=== PATIENT | female | born 1960 | race Caucasian/White ===

== ENCOUNTER 2020-06-21 15:09 | Outpatient (REF) | payer SELFPAY ==
[2020-06-21 16:32] LABS: Cholesterol 240 mg/dL
== END 2020-06-21 15:10 | disposition home or self-care (01) ==
LOC: HO.LNC 15:09
PROVIDERS: Visit Provider Pathology Anatomic Pathology & Clinical Pathology
DX: Z76.89 Persons encountering health services in other specified circumstances (principal)
CPT/HCPCS: 82465

== ENCOUNTER 2020-07-27 14:56 | Outpatient (REF) | payer OTHER, SELFPAY | END 2020-07-27 14:57 | disposition home or self-care (01) | LOC: HO.HOSX 14:56 | PROVIDERS: Visit Provider Orthopaedic Surgery | DX: Z13.89 Encounter for screening for other disorder (principal) ==

== ENCOUNTER 2020-07-28 07:48 | Outpatient (REF) | payer OTHER, SELFPAY ==
--- NOTE | 2020-07-28 07:51 | XR_ITS ---
EXAMINATION: XR SHOULDER, LEFT CLINICAL INFORMATION: Pain COMPARISON: None TECHNIQUE: Three views of the left shoulder. FINDINGS: Alignment is normal at the acromioclavicular and glenohumeral joints. The acromioclavicular joint is normal. There are no large osteophytes projecting from the undersurface of the AC joint. No hook-shaped acromion or acromiohumeral distance narrowing. The glenohumeral joint space is preserved. No glenohumeral arthritic deformity, fracture or subluxation. There appears to be a small bone island of the greater tuberosity. No suspicious bone lesion. No calcium deposition within the rotator cuff tendons. The visualized portion of the left lung is clear. XR/XR shoulder LT min 2V IMPRESSION: Normal left shoulder. No specific source of pain is identified.
== END 2020-07-28 07:49 | disposition home or self-care (01) ==
LOC: HO.HOSX 07:48
PROVIDERS: PCP Internal Medicine; Visit Provider Orthopaedic Surgery
DX: M25.512 Pain in left shoulder (principal); M77.12 Lateral epicondylitis, left elbow
CPT/HCPCS: 73030

== ENCOUNTER 2020-08-16 15:26 | Outpatient (REF) | payer SELFPAY ==
[2020-08-16 16:31] LABS: Cholesterol 250 mg/dL
== END 2020-08-16 15:27 | disposition home or self-care (01) ==
LOC: HO.LNC 15:26
PROVIDERS: Visit Provider Pathology Anatomic Pathology & Clinical Pathology
DX: Z13.89 Encounter for screening for other disorder (principal)
CPT/HCPCS: 36415; 82465

== ENCOUNTER → 2023-08-09 14:20 | Outpatient (BNV) | payer OTHER, SELFPAY | PROVIDERS: PCP Internal Medicine; Visit Provider Internal Medicine Medical Oncology | DX: D75.1 Secondary polycythemia (principal) | CPT/HCPCS: 99204 ==

== ENCOUNTER 2025-06-10 13:52 | Outpatient (AMB) | payer OTHER, SELFPAY ==
--- NOTE | 2025-06-10 13:54 | HO.SPINEOV ---
Vital Signs 06/10/25 14:14 Height 5 ft 5 in Weight 210 lb BMI 34.9 Intake Visit Reasons: LBP/ will like to review MRI Intake Note: Ms. Junior is here today c/o low back pain. MRI done at [facility]. 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 HPI: This 64-year-old female had a traumatic event when she fell on are behind approximately 10 years ago. She was unable to walk for a week due to the pain. She had bilateral hip replacements done 2018 and 2019. She comes in complaining of pain in the SI joint region, predominantly on the left side. The pain can radiate up into her back. She had an SI joint injection done many years ago which was not successful. Sitting increases the pain. She can not lay on her left side. Chiropractic adjustment can temporarily improved his symptoms. She was seen at [facility], who recommended facet blocks L3-4 L4-5 for the pain. However in the meantime with physical therapy exercises the pain has been replaced by a pressure. She denies numbness or weakness of the legs. An SI joint belt provides relief. The following conservative treatment options were tried without success antiinflammatories, tylenol, physician guided home exercise plan, cortisone shots PMH: Hysterectomy, cholecystectomy Medications: Calcium, hydrochlorothiazide, olmesartan Allergies: Cortisone gives eye swelling Social history: Nonsmoker Physical Exam: Pleasant female. She stands in slight flexed position. This pain on palpation of the left SI joint. Straight leg raise is negative. Radiological Studies: MRI done at [facility] on 02/25/2025 shows diffuse lumbar spondylosis. There is moderate facet arthrosis at L3-4 and L4-5. Impression/Plan: This patient is suffering from diffuse in the lumbar pelvic region and she is scheduled to undergo facet blocks. I agree with the patient that without pain she should not undergo facet blocks. I do think it is a good idea to repeat a diagnostic left SI joint injection as sacroiliitis remains in the differential diagnosis. I will refer to Dr. Garcia for diagnostic left SI joint injection. Thank you for allowing me to participate in your patients care. total time spent was 50 minutes in counseling ,coordination of plan, personal review of imaging, surgical decision making and subsequent plan Vamshi Negrete MD, PhD [facility] Trained Neurosurgeon Director, [facility] Orders: Referrals Physiatry Referral M46.1 - Sacroiliitis, not elsewhere classified Coding Level of Care Code New Pt Level 4 (76356) Diagnoses Sacroiliitis, not elsewhere classified M46.1
[2025-06-10 14:14] VITALS: BMI 34.9
--- OUTSIDE RECORDS SUMMARY | 2025-06-10 16:38 | XMS_ITS | Clinical Summary ---
Author Organization [facility] Address [address] [place] [id number] Phone Care Team Providers Care Civil Engineering Intern Name Role Phone Canelo Suazo MD Primary Care Provider + Canelo Suazo MD Unavailable [phone] Self-Referred, Patient Unavailable Unavailab le Family History Medical History Relation Comments CV disease Father 2 Stroke Mother 2 Relation Status Comments Father 1 Father 2 Mother 1 Mother 2 Social History Tobacco Use Types Packs/Day Years Used Date Smoking Tobacco: Never Assessed Education Answer Date Recorded Are you interested in more education? Not on austyn e 11/03/2022 Are you concerned about learning? Not on file 11/03/2022 No 11/03/2022 No 11/03/2022 Digital Access Answer Date Recorded No 12/04/2022 No 12/04/2022 Reliable internet access at home? Not on file 12/04/2022 Device with a working camera? Not on file Comments Unknown Sex and Gender Information Value Date Recorded Sex Assigned at Not on file Legal Sex Female 3:33 PM EDT Gender Identity Not on file Sexual Orientation Not on file Last Filed Vital Signs Vital Sign Reading Time Taken Comments Blood Pressure 140/73 10/31/2016 10:55 AM EDT Pulse 79 10/31/2016 10:55 AM EDT Temperature 36.4 C (97.5 F) 10/31/2016 10:55 AM EDT Respiratory Rate 16 10/31/2016 10:5 5 AM EDT Oxygen Saturation - - Inhaled Oxygen Concentration - - Weight 91.1 kg (200 lb 14.4 oz) 017 10:55 AM EDT Height 166.4 cm (5' 5.5 ) 10/23/2014 11 :48 AM EDT Body Mass Index 32.92 10/23/2014 11:48 AM EDT Plan of Treatment Health Maintenance Due Date Last Done Comments Adult Td,Tdap Booster 1960 LIPID PANEL 1960 DEPRESSION SCREENING 1972 SMOKING Hx and SMOKELESS TOBACCO SCREENING 1973 HEPATITIS C SCREENING 1978 HIV ONE-TIME SCREENING (18-6 5 YEARS) 1978 PAP SMEAR 1981 MAMMOGRAM 2000 COLOGUARD 2005 COLONOSCOPY 2005 COLORECTAL CANCER SCREENING 2005 FIT TEST 2005 FOBT 2005 SIGMOIDOSCOPY 2005 VIRTUAL COLONOSCOPY 2005 ZOSTER VACCINES (1 of 2) 2010 PNEUMOCOCCAL VACCINES (50+ years) (2 of 2 - PCV) 03/12/2021 03/12/2020, 07/08/2016 INFLUENZA VACCINE (#1) 2025 05/20/2020 COVID-19 VACCINE (2 - 2024-2 6 season) 2025 10/01/2020 RSV VACCINE (1 - 1-dose 75+ series) 2035 HEPATITIS A VACCINES Aged Out No long er eligible based on patient's age to complete this topic HIB VACCINES Aged Out No longer eligi ble based on patient's age to complete this topic MENINGOCOCCAL VACCINES (ACWY) Aged Out No longer eligible based on patient's age to complete this topic MENINGOCOCCAL VACCINES (B) Aged Out N o longer eligible based on patient's age to complete this topic Medical Devices Not on file Insurance [facility] ([place]) [place] [facility] [place] [facility] [place] [facility] CIGNA HMO POS CIGNA HMO POS [facility] Address: [place] [phone] Advance Directives For more information, please contact: [phone] (9AM - 5PM [facility] [place], Sunday-Sunday) Documents on File Type Date Recorded Patient Family Service Aide Expl anation Healthcare Proxy 10/31/2016 10:21 AM Care Teams Civil Engineering Intern Relationship Specialty Start Date End Date Canelo Suazo MD [address] [facility] [address] [place] [address] PCP - General Internal Medicine 10/13/16 Canelo Suazo MD [address] [facility] [address] [place] [address] Referring Physician Internal Medicine 10/13/16 Self-Referred, Patient 10/31/16 Additional Source Comments The information contained in this document represents components of the legal health record. It is not the complete legal health record.[facility]
--- OUTSIDE RECORDS SUMMARY | 2025-06-10 16:38 | XMS_ITS ---
Author Name [facility] Organization Unknown History of Medication Use Medication Directions Dispensed Refills Start Date End Date Status rloxiq-hqftuzayw-diagfsq um sulfates (Suprep Bowel Prep Kit) 17.5-3.13-1.6 GM/177ML Solution solution Follow directions provided by physician's office. 5 active Celebrex 100 mg capsule Take 1 capsule every day by oral route as needed. 3 active cyclobenzaprine 10 mg tablet 0.5-1 tablet po QHS prn 3 06/11/20 23 active methocarbamol (ROBAXIN) 750 MG tablet Take one tab po every 6hrs prn spasm. 8 06/07/20 23 aborted omeprazole (PriLOSEC) 20 MG capsule Take 1 capsule (20 mg total) by mouth daily. 8 06/07/20 23 aborted oxyCODONE (ROXICODONE) 5 MG immediate release tablet Take one to two tabs every 4hrs as needed for pain. Hold for lethargy. 8 06/07/20 23 aborted senna-docusate (SENNA-PLUS) 8.6-50 MG Take 1 tablet by mouth 2 (two) times a day. Take while on narcotic to help prevent constipation. 8 06/07/20 23 aborted aspirin EC 81 MG EC tablet Take 1 tablet (81 mg total) by mouth 2 (two) times a day after meals. 8 active celecoxib 100 mg capsule TAKE 1 CAPSULE BY MOUTH ONCE DAILY NEEDED 06/11/20 23 completed cephalexin 500 mg capsule TAKE FOUR CAPSULES BY MOUTH ONE HOUR BEFORE APPOINTMENT 06/11/20 23 active olmesartan 20 mg tablet 06/11/20 23 active green tea extract 23 active prednisone 20 mg tablet TAKE 2 TABLETS BY MOUTH ONCE DAILY FOR 3 DAYS 04/26/20 23 completed Advil active albuterol sulfate HFA 90 mcg/actuation aerosol inhaler INHALE 1 TO 2 PUFFS BY MOUTH EVERY 4 HOURS NEEDED active albuterol sulfate HFA 90 mcg/actuation aerosol inhaler INHALE 1 TO 2 PUFFS BY MOUTH EVERY 4 HOURS NEEDED active Benicar active Benicar active cephalexin 500 mg capsule TAKE FOUR CAPSULES BY MOUTH ONE HOUR BEFORE APPOINTMENT active hydrochlorothiazide 25 mg tablet active hydrochlorothiazide 25 mg tablet active hydroxyzine HCl 50 mg tablet TAKE 1/2 TO 1 (ONE-HALF TO ONE) TABLET BY MOUTH NEEDED NIGHTLY active olmesartan 20 mg tablet active Wegovy 0.25 mg/0.5 mL subcutaneous pen injector active acetaminophen (TYLENOL) 500 MG tablet Take 2 tablets (1,000 mg total) by mouth daily. active albuterol (PROVENTIL HFA;VENTOLIN HFA) 108 (90 Base) MCG/ACT inhaler Inhale 2 puffs into the lungs as needed for wheezing. active cholecalciferol (CHOLECALCIFEROL) 25 MCG (1000 UT) tablet Take 1,000 Units by mouth daily. active Cholecalciferol (VITAMIN D3) 2000 units TABS Take 1 tablet by mouth daily. active Green Tea, Jacque sinensis, (GREEN TEA EXTRACT PO) Take by mouth daily. active hydrochlorothiazide (HYDRODIURIL) 25 MG tablet Take 25 mg by mouth daily. active hydrochlorothiazide (HYDRODIURIL) tablet 25 mg Take 1 tablet (25 mg total) by mouth daily. active Multiple Vitamin (MULTI-VITAMIN PO) Take 1 tablet by mouth daily. active Multiple Vitamin tablet Take 1 tablet by mouth daily. active olmesartan (BENICAR) 20 MG tablet Take 20 mg by mouth daily. active olmesartan (BENICAR) 20 MG tablet Take 40 mg by mouth daily. active olmesartan (BENICAR) tablet 20 mg Take 1 tablet (20 mg total) by mouth daily. active Problems Problem Status Onset Date Problem Type Date of Resolution Source Hx of colonic polyp active EncounterDiagnosisAc t HHCCT Mixed hyperlipidemia active EncounterDiagnosisA ct CTTHNEMG Primary osteoarthritis of right hip active 2018-04-02 ProblemAct [facility]THNEMG Primary osteoarthritis of left hip active 2017-11-19 ProblemAct CTTHNEMG Localized swelling of both lower legs active EncounterDiagnosisAct CTTHNEMG Injury of articular cartilage of left knee joint active 2024-05-30 ProblemAct [facility] Degeneration of lumbosacral intervertebral disc active 2022-11-[address] [facility] Rupture of anterior cruciate ligament of left knee active 2024-05-30 ProblemAct [facility] Lumbar radiculopathy active 2022-11-06 ProblemAct [facility] Calcific tendinitis of shoulder active 2023-05-24 ProblemAct [facility] Neck pain active 2023-01-[address] Low back pain active 2022-11-06 ProblemAct [facility] Cervical spondylosis active 2023-01-08 ProblemAct [facility] Encounters Encounter Type Encounter Reason Primary Diagnosis Location Date Ambulatory [facility] 06/13/2024 Ambulatory [facility] 08/15/2023 Ambulatory [facility] 08/03/2023 Ambulatory [facility] 07/10/2023 Ambulatory [facility] 07/10/2023 Ambulatory [facility] 06/29/2023 Ambulatory [facility] 06/06/2023 Ambulatory [facility] 06/06/2023 Ambulatory [facility] 05/25/2023 Ambulatory [facility] 05/02/2023 Ambulatory Dorsalgia, unspecified Dorsalgia, unspecified [facility] 03/13/2023 Ambulatory [facility] 03/01/2023 Ambulatory [facility] 01/26/2023 Ambulatory [facility] 01/08/2023 Ambulatory [facility] 01/08/2023 Ambulatory [facility] 12/28/2022 Ambulatory [facility] 12/01/2022 Ambulatory [facility] 11/23/2022 Ambulatory [facility] 11/13/2022 Ambulatory [facility] 11/06/2022 Ambulatory [facility] 10/31/2022 Ambulatory [facility] 10/30/2022 Ambulatory Encounter for screening for malignant neoplasm of colon [facility] 03/31/2022 Care Team Organization Name Specialty Phone Email Start Date End Da sumit [facility] 11/202203/13/2023 [facility] ELIDA [facility] 03/31/2022 022 [facility] ELIDA [facility]UI [facility] 03/31/2022
--- OUTSIDE RECORDS SUMMARY | 2025-06-10 16:38 | XMS_ITS | Clinical Summary ---
Author Organization [facility] Prior to 12/06/[address] [place] [id number] Care Team Providers Care Professor Of Literature Name Role Phone Canelo Suazo MD Primary Care Provider [phone] Allergies No known active allergies Medications Medication Sig Dispensed Refills Start Date End Date Status hydrochlorothiazide (HYDRODIURIL) tablet 25 mg Take 1 tablet (25 mg total) by mouth daily. 0 Active albuterol (PROVENTIL HFA;VENTOLIN HFA) 108 (90 Base) MCG/ACT inhaler Inhale 2 puffs into the lungs as needed for wheezing. 0 Active Calcium Carbonate (CALCIUM 600 PO) Take 1 tablet by mouth daily. 0 Active B Complex Vitamins (B COMPLEX PO) Take 1 tablet by mouth daily. 0 Active Cholecalciferol (VITAMIN D3) 2000 units TABS Take 1 tablet by mouth daily. 0 Active Multiple Vitamin (MULTI-VITAMIN PO) Take 1 tablet by mouth daily. 0 Active Magnesium 250 MG TABS Take 1 tablet by mouth every evening. 0 Active acetaminophen (TYLENOL) 500 MG tablet Take 2 tablets (1,000 mg total) by mouth daily. 0 Active olmesartan (BENICAR) tablet 20 mg Take 1 tablet (20 mg total) by mouth daily. 0 Active aspirin EC 81 MG EC tablet Take 1 tablet (81 mg total) by mouth 2 (two) times a day after meals. 84 tablet 0 04/04/2018 Active Active Problems Problem Noted Date Diagnosed Date Primary osteoarthritis of right hip 04/02/2018 Primary osteoarthritis of left hip 11/19/2017 Social History Tobacco Use Types Packs/Day Years Used Date Smoking Tobacco: Former Cigarettes 0.5 15 Q uit: 11/05/2002 Smokeless Tobacco: Never Alcohol Use Standard Drinks/Week Comments No 0 (1 standard drink = 0.6 oz pur e alcohol) Sex and Gender Information Value Date Recorded Sex Assigned at Female 03/06/2023 7:09 AM EDT Gender Identity Not on file Sexual Orientation Not on file Job Start Date Occupation Industry Not on file Not on file Not on file Last Filed Vital Signs Vital Sign Reading Time Taken Comments Blood Pressure 146/82 06/07/2023 11:47 AM EST Pulse 75 06/07/2023 11:47 AM EST Temperature 36.7 C (98.1 F) 04/04/2018 8:38 AM EDT Respiratory Rate 16 04/04/2018 8:38 AM EDT Oxygen Saturation 96% 06/07/2023 11:47 AM EST Inhaled Oxygen Concentration - - Weight 97.5 kg (215 lb) 06/07/2023 11:47 AM EST Height 165.1 cm (5' 5 ) 06/07/2023 11:47 AM EST Body Mass Index 35.78 06/07/2023 11:47 AM EST Plan of Treatment Health Maintenance Due Date Last Done Comments Hepatitis C Screening 1960 Depression Screening 1972 BMI Counseling 1978 Preventative Health Evaluation 1978 DTap / Tdap / Td (1 - Tdap) 1979 Cervical Cancer Screening (Pap Smear) 1981 Colon Cancer Screening (Colonoscopy) 2005 Breast Cancer Screening (Mammogram) 2010 Shingrix-Zoster Vaccine (1 o f 2) 2010 COVID-19 Vaccine (3 - 2024-2 6 season) 2025 10/23/2020, 10/01/2020 Influenza Vaccine (#1) 2025 Pneumococcal Vaccine (1 of 1 - PCV) 2025 RSV Adult > 60+ Yrs or (1 - 1-dose 75+ series) 2035 Hepatitis B Vaccines Aged Out No long er eligible based on patient's age to complete this topic Pneumococcal Vaccine Aged Out No long er eligible based on patient's age to complete this topic RSV Ped < 20 months Aged Out No longe r eligible based on patient's age to complete this topic Medical Devices Implanted Type Area Healthcare Educator Device Identifier Shelf Expiration Date Model / Serial / Lot Shell R3 50mm 3 Hole Acetabular Hip - [id number] - [id number] Implanted:Qty: 1 on 11/21/2017 by Oneil Valles MD at [facility] Left: Hip [employer] 09/30/2027 [id number] / / [id number] Screw Reflection 25mm 6.5mm Spherical Head Bone Acetabular - [id number] - [id number] Implanted:Qty: 1 on 11/21/2017 by Oneil Valles MD at [facility] Left: Hip [employer] 10/08/2023 [id number] / / [id number] Screw Reflection 20mm 6.5mm Spherical Head Acetabular - [id number] - [id number] Implanted:Qty: 1 on 11/21/2017 by Oneli Valles MD at [facility] Left: Hip [employer] 06/06/2027 [id number] / / [id number] Liner R3 20d 50mm 32mm Xlpe Acetabular Hip - [id number] - [id number] Implanted:Qty: 1 on 11/21/2017 by Oneil Valles MD at [facility] Left: Hip [employer] 07/14/2027 [id number] / / [id number] Stem Anthology 3 Primary High Offset Porous Femoral Hip - [id number] - [id number] Implanted:Qty: 1 on 11/21/2017 by Oneil Valles MD at [facility] Left: Hip [employer] 03/08/2019 [id number] / / [id number] Head +0mm 12\14 Small 32mm Biolox Delta Femoral - [id number] - [id number] Implanted:Qty: 1 on 11/21/2017 by Oneil Valles MD at [facility] Left: Hip [employer] 02/20/2027 [id number] / / [id number] Screw Trilogy 20mm 6.5mm Self Tap Tivanium Bone Cortex Hip - [id number] - [id number] Implanted:Qty: 1 on 04/03/2018 by Oneil Valles MD at [facility] Right: Hip [employer] 01/06/2028 [id number] / / [id number] Stem M\L 41mm Taper Extended Offset Reduced Neck 111mm 6mm - [id number] - [id number] Implanted:Qty: 1 on 04/03/2018 by Oneil Valles MD at [facility] Right: Hip [employer] 01/05/2027 [id number] / / [id number] Head Trilogy It Continuum -3.5mm 12\14 Small 32mm Biolox - [id number] - [id number] Implanted:Qty: 1 on 04/03/2018 by Oneil Valles MD at [facility] Right: Hip [employer] 12/06/2025 [id number] / / [id number] Kit Cap Hip Pricing Porous Cup Xlpe Liner Ceramic Hd - [id number] - [id number] Implanted:Qty: 1 on 04/03/2018 by Oneil Valles MD at [facility] Right: Hip [employer] [id number] / / Shell Trilogy 52mm Primary Cluster Hole Tivanium Porous - [id number] - [id number] Implanted:Qty: 1 on 04/03/2018 by Oneil Valles MD at [facility] Right: Hip [employer] 10/07/2027 [id number] / / [id number] Liner Trilogy 10d 6.3mm 50\52\54mm 32mm Primary Modular Cup - [id number] - [id number] Implanted:Qty: 1 on 04/03/2018 by Oneil Valles MD at [facility] Right: Hip [employer] 12/06/2022 [id number] / / [id number] Screw Trilogy 25mm 6.5mm Self Tap Tivanium Bone Cortex Hip - [id number] - [id number] Implanted:Qty: 1 on 04/03/2018 by Oneil Valles MD at [facility] Right: Hip [employer] 02/06/2028 [id number] / / [id number] Advance Directives For more information, please contact: [phone] Latest Code Status on File Code Status Date Activated Date Inactivated Comments Full Code 04/03/2018 11:45 AM 04/04/2018 6:50 PM This code status was ascertained in the following way: discussion with patient . Code Status History Code Status Date Activated Date Inactivated Comments Full Code 04/03/2018 7:12 AM 04/03/2018 11:45 AM This code status was ascertained in the following way: discussion with patient . Full Code 11/21/2017 6:54 AM 11/22/2017 10:18 PM This code status was ascertained in the following way: discussion with patient . Full Code 11/21/2017 5:17 AM 11/21/2017 6:54 AM This code status was ascertained in the following way: discussion with patient . Care Teams Professor Of Literature Relationship Specialty Start Date End Date Canelo Suazo MD [address] [facility] [address] [place] [address] PCP - General Geriatric Medicine 11/08/17
--- OUTSIDE RECORDS SUMMARY | 2025-06-10 16:38 | XMS_ITS | Clinical Summary ---
Author Organization [facility] Address [address] [place] [address] Care Team Providers Care Housekeeping Cleaner Name Role Phone Canelo Suazo MD Primary Care Provider [phone] Immunizations Immunization Administration Dates Next Due Pfizer SARS-CoV-2 COVID-19, mRNA, LNP-S, preservative free 10/23/2020,10/01/2020 Surgical History Surgery Date Site/Laterality Comments CHOLECYSTECTOMY PROCEDURE:CHOLECYSTECTOMY SECTION PROCEDURE: SECTION HYSTERECTOMY PROCEDURE:HYSTERECTOMY COLONOSCOPY PROCEDURE:COLONOSCOPY TOTAL HIP ARTHROPLASTY 04/03/2018 Right PROCEDURE:TOTAL HIP ARTHROPLASTY;COMMENT:Procedure: REPLACEMENT TOTAL HIP; Surgeon: Oneil Valles MD; Location: [facility] ([facility]); Service: Orthopedics; Laterality: Right; TOTAL HIP ARTHROPLASTY 11/21/2017 Left PROCEDURE:TOTAL HIP ARTHROPLASTY;COMMENT:Procedure: REPLACEMENT TOTAL HIP; Surgeon: Oneil Valles MD; Location: [facility] ([facility]); Service: Orthopedics; Laterality: Left; Medical History Medical History Date Comments Seasonal allergies DX:Seasonal a llergies Osteoarthritis DX:Osteoarthriti s Hypertension DX:Hypertension Hyperlipidemia DX:Hyperlipidemi a;COMMENT:BORDERLINE Cancer (CMS/HCC V24, CMS/HCC V28) 2016 DX:Cancer (HCC);COMMENT:UTERINE NO CHEMO/RAD Asthma DX:Asthma Primary osteoarthritis of left hip 11/19/2017 DX:Primary osteoarthritis of left hip Sleep apnea, obstructive DX:Slee p apnea, obstructive;COMMENT:COMPLIANT Primary osteoarthritis of right hip 04/02/2018 DX:Primary osteoarthritis of right hip Social History Tobacco Use Types Packs/Day Years Used Date Smoking Tobacco: Former Cigarettes 0.5 Q uit: 11/05/2002 Smokeless Tobacco: Never Alcohol Use Standard Drinks/Week Comments No 0 (1 standard drink = 0.6 oz pur e alcohol) Comments Unknown Sex and Gender Information Value Date Recorded Sex Assigned at Not on file Legal Sex Female 6:54 PM EST Gender Identity Not on file Sexual Orientation Not on file Obstetrics History Last Filed Vital Signs Vital Sign Reading Time Taken Comments Blood Pressure 146/82 06/07/2023 11:47 AM EST Pulse 75 06/07/2023 11:47 AM EST Temperature - - Respiratory Rate - - Oxygen Saturation - - Inhaled Oxygen Concentration - - Weight 97.5 kg (215 lb) 06/07/2023 11:47 AM EST Height 165.1 cm (5' 5 ) 06/07/2023 11:47 AM EST Body Mass Index 35.78 06/07/2023 11:47 AM EST Plan of Treatment Health Maintenance Due Date Last Done Comments Breast Cancer Screening 1960 Colorectal Cancer Screening: Colonoscopy 1960 DTaP,Tdap,and Td Vaccines (1 - Tdap) 1979 Cervical Cancer Screening: P ap Smear 1981 Pneumococcal Vaccine: 50+ Years (1 of 1 - PCV) 2010 Zoster Vaccines (1 of 2) 2010 Cholesterol Screening (Lipid Panel) 08/08/2023 HIV Screening 08/08/2023 Hepatitis C Screening 08/08/2023 Social Influencers of Health Screening 08/08/2023 Depression Screening 07/09/2024 COVID-19 Vaccine (3 - 2024-2 6 season) 2025 10/23/2020, 10/01/2020 Influenza Vaccine (#1) 2025 RSV Immunization Adult Patients (1 - 1-dose 75+ series) 2035 HIB Vaccines Aged Out No longer eligi ble based on patient's age to complete this topic HPV Vaccines Aged Out No longer eligi ble based on patient's age to complete this topic Hepatitis A Vaccines Aged Out No long er eligible based on patient's age to complete this topic Hepatitis B Vaccines Aged Out No long er eligible based on patient's age to complete this topic IPV Vaccines Aged Out No longer eligi ble based on patient's age to complete this topic MMR Vaccines Aged Out No longer eligi ble based on patient's age to complete this topic Meningococcal ACWY Vaccine Aged Out N o longer eligible based on patient's age to complete this topic Meningococcal B Vaccine Aged Out No l onger eligible based on patient's age to complete this topic RSV Immunization Patients Under 20 months Aged Out No longer eligible b ased on patient's age to complete this topic Varicella Vaccines Aged Out No longer eligible based on patient's age to complete this topic Care Teams Housekeeping Cleaner Relationship Specialty Start Date End Date Canelo Suazo MD [address] [place], [place] PCP - General Geriatric Medicine 11/08/17
--- OUTSIDE RECORDS SUMMARY | 2025-06-10 16:38 | XMS_ITS | Data Portability ---
Author Organization [place] [facility] Address [address] [place] [address] Care Team Providers Care Parking Enforcement Manager Name Role Phone ELIDA HUI Primary Care Provider [phone] ELIDA HUI Referring Provider ELIDA HUI Primary Care Provider Assessment Encounter Date Assessment Date Assessment LastModified by Organization Details LastModified Time 05/02/2023 05/02/2023 [facility] Chief Complaint : HPI : The patient is now 62 years of age. She is over 5 years following bilateral total hip arthroplasties apparently 6 months apart. The patient had a hysterectomy and bilateral inguinal node resection apparently between her 2 hip arthroplasties. The patient states that her left hip has occasionally been cranky with some trochanteric irritation. However over the past year, he has had trouble particular sitting. Walking has been a bit more difficult. The pain that she experiences is a deep aching in the buttock and SI joints. At times she also has left lower extremity pain weakness swelling and pain in her left foot. At times she has a sense that the left thigh is warm. She apparently saw Alissa Rush this spring, had some physical therapy and failed to improve. She apparently also has had, in the past, cortisone injections to the SI joint and for bursitis more recently had a Medrol Dosepak and she has significant intolerance to cortical steroids, orally or injectable. REVIEW OF SYSTEMS : No other changes as noted above. PHYSICAL EXAM : Very pleasant alert cooperative somewhat heavyset woman who walks today without a limp. No trouble getting on exam table. I did not detect any definite swelling of her left thigh today. Her range of motion both hips was smooth comfortable, without synovitis or pain. She did have trochanteric tenderness at the abductor insertion left more than right. I would assess her abductors of 4/5. Discrete tenderness around both SI joints and over the sciatic notch as well motor function distally seem to be intact. Knees were unremarkable. Focused Physical Examination : IMAGING/DIAGNOSTI C TESTING : See Discussion Notes Section DIAGNOSIS : The patient seems to have several issues, she has SI joint dysfunction abductor tendinitis and perhaps some element of radicular pain. She may have an element of lymphedema as well. Procedure : IMPRESSION/PLAN : The patient is scheduled for a CAT scan of multiple areas of her body. Therefore, we will simply wait and see the results of that study before recommending anything further. She is also having lymphedema work-up. I did recommend a sed rate and C-reactive protein to rule out the unlikely possibility of a deep space infection. Recheck in 1 month or sooner if any questions problems or concerns arise. Is a pleasure seeing her today Oneil Valles MD [facility] I have pain in both SI joints and buttocks [email or web address] Not available 05/02/2023 13:48:17 06/06/2023 06/06/2023 [facility] Chief Complaint : I have pain in my left buttock and left hip. Also swelling in my left leg. HPI : Since I last saw her, the patient had blood work done with a normal sed rate and CRP. She continues to have some swelling and is wearing a compression stocking. She is planning on seeing a director social welfare and a vascular surgeon. Overall, not much change in her symptoms. REVIEW OF SYSTEMS : No change PHYSICAL EXAM : Patient had a level gait today, comfortable range of motion of the left hip and no trouble getting on the exam table. There was some swelling throughout the left lower extremity noted. Focused Physical Examination : IMAGING/DIAGNOSTI C TESTING : See Discussion Notes Section DIAGNOSIS : Etiology of this patient's pain and swelling is uncertain, likely some element of radicular pain in her buttock. Procedure : IMPRESSION/PLAN : However, to rule out a more worrisome condition around her hip, possible pseudotumor, a [place] MRI scan is indicated. We will conduct a telehealth in 4 weeks to review the results. Sooner if any questions problems or concerns. Oneil Valles MD [facility] [email or web address] Not available 06/06/2023 13:51:01 06/11/2023 06/11/2023 HPI: Cristal is a 62-year-old generally healthy female who returns for continued management of her cervical spine. She was previously evaluated for her lumbar spine. She had spondylosis without high-grade central or foraminal stenosis. She was referred to the company dispensed to for nonoperative care of her spinal symptoms. She returns today to rediscuss her cervical spine. She has been participating in physical therapy and lawn care professional since her last visit in January 2023. She reports that they performed traction. Unfortunately she notes worsening bilateral left greater than right radial sided hand numbness. She continues to have neck stiffness and discomfort that radiates into her left trapezius. Her pain and paresthesias disturb her sleep. She denies myelopathic symptoms. She does not have radicular pain. She can only tolerate symptoms she is requesting an MRI of her cervical spine. Exam: She is comfortable in a seated position. She has tenderness over the left trapezius. She has full strength of bilateral upper extremities. She has negative Tinel's at the wrist bilaterally. Plan: She has cervical spondylosis. Is not clear whether her bilateral hand paresthesias are secondary to neural compression or a carpal tunnel syndrome. She has completed physical therapy and trialed lawn care professional since her last visit on February 05, 2023 and her symptoms have worsened. We will proceed with an MRI of her cervical spine for further evaluation. In addition we also suggested an EMG/NCS of her bilateral upper extremities to evaluate for carpal tunnel. She will follow-up after the tests. [email or web address] Not available 06/11/2023 16:38:53 07/11/2023 07/11/2023 [facility] Chief Complaint : Follow-up of my left thigh swelling and left hip pain HPI : Conducted a telehealth visit with the patient today she was home and I was in the office to review the results of the [place] MRI scan done late last month. The patient continues have some aching around the lateral aspect of her left hip and some thigh swelling. Note that she had bilateral hip arthroplasties, staged, in 2018. Reviewed the MRI report with her. She has bilateral trochanteric bursitis with a small fluid collection external to the trochanteric bursa on the right side. Neither side shows a significant effusion, osteolysis or evidence of adverse local tissue reaction. Therefore, her hips are not the cause of the left thigh swelling, per se. She does have trochanteric bursitis and tendon issues in that region I be happy to see her for that in the office. However she cannot have a cortisone injection because she is issues with her eyes. She is seeing a vascular surgeon about her left thigh swelling. Fortunately, this is not related to pseudotumor. She is comfortable with that. REVIEW OF SYSTEMS : No change PHYSICAL EXAM : Not performed Focused Physical Examination : IMAGING/DIAGNOSTI C TESTING : See Discussion Notes Section DIAGNOSIS : Left hip bursitis and tendinitis, implants functioning well Procedure : IMPRESSION/PLAN : As noted above, the patient was advised to see me perhaps in 2 to 3 months for checkup. She will also keep me posted about her visit with her vascular surgeon. She was also informed that there are any changes that I would like to be kept informed is a pleasure seeing her today by telehealth. Oneil Valles MD [facility] [email or web address] Not available 07/11/2023 13:44:26 05/30/2024 05/30/2024 HPI : Patient is here for follow-up for her left knee pain. I saw her last year. She reported pain and instability episodes at that time. Radiographs were negative for arthritic changes. We got an MRI of her left knee. It showed an ACL tear. It showed a meniscal tear. It showed mild patellar chondromalacia. She is managing her symptoms. About 6 weeks ago she had a fall. She had worsening symptoms. She reports instability episodes and some discomfort. She has been using Kinesiotape which has brought some relief. Physical Exam : Patient is well nourished, well-developed, in no acute distress, with appropriate mood and affect. The patient is oriented to time, place, and person. Examination of the contralateral knee shows normal range of motion, strength, no tenderness, and intact skin. The affected limb is well-perfused, without skin lesions, shows a grossly normal motor and sensory examination. Left knee motion is is not reduced and does not cause significant pain. The left knee moves from 0-130 degrees. The knees are stable within those [id number]. The alignment of the left knee is neutral . Muscle strength is normal. Pedal pulses are palpable. Hip examination, including flexion and internal rotation, was negative in that groin pain was not produced. Assessment/Plan : Patient has left knee discomfort and instability episodes, with prior MRI demonstrating ACL tear and meniscal tear. She does not have significant degenerative changes. I discussed with her that I would recommend she sees one of my sports colleagues for these injuries. While I am not sure if surgery is warranted, they may be able to better guide her further. She is not interested in seeing another physician at this time. We are going to send her for physical therapy, for left knee conditioning program, she also wants some nursing home assistant administrator with the Kinesiot[employer]. If she would like further follow-up it should be with our sports team. [email or web address] Not available 05/30/2024 14:10:49 Plan of Treatment Reminders Order Date Submit Date Provider Last Modified By Organization Details Last Modified Time Details Appointments None recorded. Lab None recorded. Referral neurologis t referral - B/L UE EMG/NCS - progressiv e L>R radial hand numbness eval carpal tunnel vs cervical radiculopa thy 2022 023 [email or web address] [facility], [address], [place], [address], 4 08:15:48 Procedures None recorded. Surgeries None recorded. Imaging XR, knee, 4 or more view 2023 024 [email or web address] [facility], [address], [place], [address], 4 14:12:03 MRI, cervical spine, w/o contrast - neck pain, progressiv e L>R radial hand numbness, failed PT, eval neural compressio n 2022 023 [email or web address] Not available 3 15:45:06 MRI, hip, w/o contrast - MARS protocol s/p left total hip with swelling and pain 2022 023 [facility] [place], [address], [address], [place], [address], 3 14:37:13 XR, hip, unilateral , 2 or 3 view 2022 023 [facility], [address], [address], [place], [address], 3 14:25:02 XR, lumbosacra l spine, 2 or 3 view 2022 023 [facility], [address], [place], [address], 3 14:25:02 XR, hip, unilateral , 2 or 3 view 2022 023 [facility], [address], [place], [address], 3 14:25:02 Medication Orders None recorded. Patient TargetsNo targets recorded. Patient InstructionsNo instructions recorded. Reason for Referral Neurologist Referral for Num bness of hand B/L UE EMG/NCS - progressive L>R radial hand numbness eval carpal tunnel vs cervical radiculopathy Referring Physician: Alissa Rush, Orthopedic Surgery, Encounter Date: 06/11/2023 Results Created Date Observation Date Name Description Value Unit Range Abnormal Flag Note LastModifiedBy Organization Detail LastModifiedTime 06/16/2006/16/2023 MRI, cervi lillian spine , w/o contr ast No observ ation record ed. [email or web address] [facility] [place] [address] [address], [place], [address], 06/18/2023 12:47:04 06/16/20 23 06/16/2023 XR, cervi lillian spine , 2 or 3 view No observ ation record ed. [facility] [place] [address], [address], 06/18/2023 17:48:08 06/20/2006/16/2023 MRI, cervi lillian spine , w/o contr ast No observ ation record ed. [email or web address] [facility] [place] [address], [place], [address], 06/22/2023 11:13:51 06/20/20 23 06/16/2023 MRI, cervi lillain spine , w/o contr ast No observ ation record ed. [email or web address] Not Available 2022 11:13:51 06/21/2006/19/2023 elect romyo gram No observ ation record ed. [email or web address] [facility] [address], [place], [address], 06/22/2023 11:13:37 06/30/20 23 06/29/2023 MRI, hip, w/o contr ast EXAMIN ATION: MR HIP WITHOU T CONTRA ST, LEFT CLINIC AL INFORM ATION: Status post left total hip with swelli ng and pain. COMPAR SANDHYA: None availa ble. TECHNI QUE: Multip lanar MR images of the left hip were obtain ed on a high-f ield scanne r withou t intrav enous contra st. Limite d images of the entire pelvis were also obtain ed. FINDIN GS: Subcut aneous soft tissue s: Normal . Muscle s/tend ons: Mild hetero geneit y of the origin of the hamstr ing tendon s bilate rally compat ible with minima l perite ndinit is and/or tendin osis. Left trocha nteric bursa: Trace fluid. Right trocha nteric bursa: Trace amount of fluid presen t within the bursa compat ible with minima l bursit is. This does not commun icate with the joint. There is lobula suzanna fluid within the region of the trocha nteric bursa. This measur es up to 15 mm transv erse, 15 mm AP and 56 mm cranio caudal . It may slight ly protru de throug h the tensor fascia antony adjace nt to the bursa. The collec tion does not appear to commun icate with the joint. Neurov ascula r struct ures: Normal . Bone/j oints: Left hip: Total hip arthro plasty noted. Surrou nding bone is normal . No joint effusi on. Right hip: Right total hip arthro plasty noted. Surrou nding bone normal . No effusi on. Bone and joints in the pelvis normal . IMPRES JORGE LUIS: 1. Minima l left trocha nteric bursit is. 2. Lobula suzanna fluid collec tion in the region of the right trocha nteric bursa compat ible with bursit is. This may slight ly protru de throug h the tensor fascia antony adjace nt to the bursa. The collec tion does not appear to commun icate with the joint. 3. No MRI eviden ce for osteol ysis. 4. Minima l hetero geneit y at the origin of the hamstr ing tendon s bilate rally compat ible tendin osis and/or minima l inters titial partia l tearin g but no measur able defect . Thank you for referr ing your patien t to us, Aristeo naranjo MD [phone] (Elect shereen harris Signed - 2022 14:33) Copy: ELIDA MILIAN MD [facility] [address] [place] [address] [phone] PATIROCÍO T [facility] [address], [place], [address], 07/03/2023 13:39:50 Result Notes Documentation Provider Name and Address Organization Details Recorded Time Mri, Hip, W/o Contrast : EXAMINATION: MR HIP WITHOUT CONTRAST, LEFT CLINICAL INFORMATION: Status post left total hip with swelling and pain. COMPARISON: None available. TECHNIQUE: Multiplanar MR images of the left hip were obtained on a high-field scanner without intravenous contrast. Limited images of the entire pelvis were also obtained. FINDINGS: Subcutaneous soft tissues: Normal. Muscles/tendons: Mild heterogeneity of the origin of the hamstring tendons bilaterally compatible with minimal peritendinitis and/or tendinosis. Left trochanteric bursa: Trace fluid. Right trochanteric bursa: Trace amount of fluid present within the bursa compatible with minimal bursitis. This does not communicate with the joint. There is lobulated fluid within the region of the trochanteric bursa. This measures up to 15 mm transverse, 15 mm AP and 56 mm craniocaudal. It may slightly protrude through the tensor fascia antony adjacent to the bursa. The collection does not appear to communicate with the joint. Neurovascular structures: Normal. Bone/joints: Left hip: Total hip arthroplasty noted. Surrounding bone is normal. No joint effusion. Right hip: Right total hip arthroplasty noted. Surrounding bone normal. No effusion. Bone and joints in the pelvis normal. IMPRESSION: 1. Minimal left trochanteric bursitis. 2. Lobulated fluid collection in the region of the right trochanteric bursa compatible with bursitis. This may slightly protrude through the tensor fascia antony adjacent to the bursa. The collection does not appear to communicate with the joint. 3. No MRI evidence for osteolysis. 4. Minimal heterogeneity at the origin of the hamstring tendons bilaterally compatible tendinosis and/or minimal interstitial partial tearing but no measurable defect. Thank you for referring your patient to us, Rodger Santamaria MD [phone] (Electronically Signed - 06/30/2023 14:33) Copy: ELIDA HUI MD [facility] [address] [place] [address] PATIENT , Rosa M Kramer seun, [place] [facility] 07/03/2023 13:39:50 Problems Name Problem SNOMED Code Status Onset Date Resolution Date Notes Provider Name and Address Organization Details Recorded Time Osteoarth ritis of left hip joint 64039665268 9108 Active 2017 Primary osteoarth ritis of left hip Not Available [facility] 5 00:34:45 Osteoarth ritis of right hip joint 94198965855 9107 Active 2017 Primary osteoarth ritis of right hip Not Available [facility] 5 00:34:45 Low back pain 688248654 Active 2022 ALISSA RUSH PA-C [address], [place], [address] , [place] [facility] 3 16:05:09 Lumbar radiculop athy 729102020 Active 2022 ALISSA RUSH PA-C [address], [place], [address] , [place] [facility], [facility] 3 16:05:16 Degenerat ion of lumbosacr al intervert ebral disc 63938064 Active 2022 ALISSA RUSH PA-C [address], [place], [address] , [place] [facility], [facility] 3 16:06:20 Neck pain 94812247 Active 2022 ALISSA RUSH PA-C [address], [place], [address] , [place] [facility], [facility] 3 16:37:20 Cervical spondylos is 701952823 Active 2022 ALISSA RUSH PA-C [address], [place], [address] , [place] [facility], [facility] 3 16:40:44 Calcific tendiniti s of shoulder 45496865 Active 2022 Jose Alberto Thorne MD [address], [place], [address] , [place] [facility], [facility] 3 13:35:48 Rupture of anterior cruciate ligament of left knee 77377676667 602918 Active [address], [place], [address] , [place] [facility], [facility] 4 14:08:17 Injury of articular cartilage of left knee joint 97996442453 002151 Active [address], [place], [address] , [place] [facility], [facility] 4 14:08:32 Problem Notes None recorded. Procedures Surgical History Date Name Laterality Status Provider Name and Address Organization Details Recorded Time 04/08/20 18 [facility] 06/11/2023 16:12:49 11/07/19 18 Joint Replacement completed [facility], [facility] 06/11/2023 16:12:49 10/10/19 17 Hysterectomy completed [facility], [facility] 06/11/2023 16:12:49 10/08/19 10 Gallbladder Surgery completed [facility] 06/11/2023 16:12:49 07/04/20 01 Caesarean Section completed [facility] 06/11/2023 16:12:49 [facility] 14:15:50 [facility] 14:17:15 Imaging Results None recorded. Procedure Notes None recorded. Medical Equipment None Reported. Allergies No known drug allergies Medications Name Sig Start Date Stop Date Status Note LastModified by Organization Details LastModified Time cyclobenzap rine 10 mg tablet TAKE 1/2 TO 1 (ONE-HALF TO ONE) TABLET BY MOUTH EVERY DAY AT BEDTIME NEEDED 06/11 completed Not Available Not Available Not Available prednisone 20 mg tablet TAKE 2 TABLETS BY MOUTH ONCE DAILY FOR 3 DAYS 04/26 completed Not Available Not Available Not Available sennosides 8.6 mg-docusate sodium 50 mg tablet Take 1 tablet by mouth 2 (two) times a day. Take while on narcotic to help prevent constipat ion. 06/07 completed Not Available Not Available Not Available hydroxyzine HCl 50 mg tablet TAKE 1/2 TO 1 (ONE-HALF TO ONE) TABLET BY MOUTH NEEDED NIGHTLY active Not Available Not Available No t Available aspirin 81 mg tablet,magui yed release Take 1 tablet (81 mg total) by mouth 2 (two) times a day after meals. 2017 active Not Available Not Available Not Avai lable methocarbam ol 750 mg tablet Take one tab po every 6hrs prn spasm. 06/07 completed Not Available Not Available Not Available cephalexin 500 mg capsule TAKE FOUR CAPSULES BY MOUTH ONE HOUR BEFORE APPOINTME NT active Not Available Not Available No t Available omeprazole 20 mg capsule,del ayed release Take 1 capsule (20 mg total) by mouth daily. 06/07 completed Not Available Not Available Not Available hydrochloro thiazide 25 mg tablet Take 1 tablet (25 mg total) by mouth daily. active Not Available Not Available No t Available albuterol sulfate HFA 90 mcg/actuati on aerosol inhaler Inhale 2 puffs into the lungs as needed for wheezing. active Not Available Not Available No t Available celecoxib 100 mg capsule TAKE 1 CAPSULE BY MOUTH ONCE DAILY NEEDED 06/11 completed Not Available Not Available Not Available Tylenol Extra Strength 500 mg tablet Take 2 tablets (1,000 mg total) by mouth daily. active Not Available Not Available No t Available oxycodone 5 mg tablet Take one to two tabs every 4hrs as needed for pain. Hold for lethargy. 06/07 completed Not Available Not Available Not Available olmesartan 20 mg tablet Take 1 tablet (20 mg total) by mouth daily. active Not Available Not Available No t Available magnesium active Not Available Not Kim ilable Not Available calcium active Not Available Not Avail able Not Available Advil active Not Available Not Availa ble Not Available Vitamin D active Not Available Not Kim ilable Not Available Tylenol active Not Available Not Avail able Not Available Benicar active Not Available Not Avail able Not Available green tea extract active Not Available Not Available Not Available cholecalcif shreyas (vitamin D3) 50 mcg (2,000 unit) tablet Take 1 tablet by mouth daily. active Not Available Not Available No t Available Multi Vitamin active Not Available Not Available Not Available [place] DHA active Not Available Not Kim ilable Not Available Readi-Cat 2 2 % (w/v) oral suspension IF SCAN IN THE MORNING, DRINK 1ST BOTTLE NIGHT BEFORE &2ND BOTTLE 90 MINUTES BEFORE SCAN. IF SCAN AFTER 12PM, DRINK 1ST BOTTLE BY 8AM &2ND BOTTLE 90 MINUTES BEFORE. IF SCAN AFTER 4 PM, DRINK 1ST BOTTLE 6 HOURS BEFORE AND 90 MINUTES BEFORE SCAN active Not Available Not Available No t Available Wegovy 0.25 mg/0.5 mL subcutaneou s pen injector active Not Available Not Available Not Available Vitals Date Recorded Body height Body mass index (BMI) Body weight Provider Name and Address Organization Details Last Updated DateTime 05/30/2024 162.56 cm 37.8 kg/m2 69750.32 g Tierra Craft [facility] 05/30/2024 13:55:03 Date Recorded Body height Provider Name an d Address Organization Details Last Updated DateTime 06/06/2023 165.1 cm Jazmine Jennings [facility] 06/06/2023 13:08:51 Date Recorded Body weight Body height Body mass index (BMI) Heart rate Oxygen saturation Systolic And Diastolic Provider Name and Address Organization Details Last Updated DateTime 3 45215 g 165.1 cm 35.78 kg/m2 75 /min 96 % 146/82 mm[Hg] Not Available [facility] 01:06:22 Date Recorded Body height Body mass index (BMI) Body weight Provider Name and Address Organization Details Last Updated DateTime 06/11/2023 162.56 cm 37.8 kg/m2 19817.32 g Gretchen Lalo [facility] 06/11/2023 16:13:08 Social History Question Answer Notes LastModified by myTomorrows ion Details LastModified Time Tobacco Smoking Status Former Smoker Naif kohli, [facility] 10/13/2022 14:14:27 Are You Deaf Or Do You Have Serious Difficulty Hearing? No [email or web address] Information not available 06/11/2023 Who Is Your Employer? [employer] [email or web address] Information not available 06/11/2023 How Much Tobacco Do You Smoke? 0.5 PPD [email or web address] Information not available 06/11/2023 How Many Years Have You Smoked Tobacco? 20 [email or web address] Information not available 06/11/2023 Are You Currently In School? No [email or web address] Information not available 06/11/2023 Sex: Unknown Functional Status Question Answer Note LastModified by Organizat ion Details LastModified Time How many times per week do you consume alcohol? Less than 1 time per week [email or web address] Information not available 06/11/2023 Do you use any illicit or recreational drugs? No [email or web address] Information not available 10/13/2022 Do you or have you ever used any other forms of tobacco or nicotine? No [email or web address] Information not available 06/11/2023 What is your level of alcohol consumption? None [email or web address] Information not available 10/13/2022 Do you or have you ever used smokeless tobacco? Never used smokeless tobacco [email or web address] Information not available 06/11/2023 Are you currently employed? 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 Never used electronic cigarettes [email or web address] Information not available 06/11/2023 Mental Status None recorded. Family History Relationship Description Onset Age of this Age Resolved Age Notes LastModified by Organization Details LastModified Time Brother Hyperlipidem ia [email or web address] Not available 2022 16:12:03 Brother Hypertensive disorder Not available 2022 16:12:03 Brother Gout Not available 06/11/2023 16:12:03 Father Hyperlipidem ia [email or web address] Not available 2022 16:12:03 Father Hypertensive disorder [email or web address] Not available 2022 16:12:03 Father Arthritis [email or web address] Not availabl e 06/11/2023 16:12:03 Mother Hyperlipidem ia [email or web address] Not available 2022 16:12:03 Mother Hypertensive disorder Not available 2022 16:12:03 Sister Hyperlipidem ia [email or web address] Not available 2022 16:12:03 Sister Hypertensive disorder Not available 2022 16:12:03 Medical History Condition Response Cancer Y High Cholesterol Y Allergies/Hayfever Y Asthma Y Sleep Apnea Y Hypertension Y Gynecological HistoryNo gynecological history recorded. Obstetrics History GPAL:G 0 P 0 0 0 0 Past Encounters Encounter ID Performer Location Encounter Start Date Encounter Closed Date Diagnosis/Indication Diagnosis SNOMED-CT Code Diagnosis ICD10 Code Diagnosis IMO Codes Diagnosis Note [id number] MD WILMER Humphrey [address] [place] [address] [place] [address] 10/13/2022 12:58:36 10/13/2022 14:47:42 Pain of left knee joint 4647842199 98807 M25.562 Pain of hip region 70806 002 M25.559 Aftercare 115137933 Z47. 1 Tendinitis of hip 781677 006 M76.899 [id number] JEFF DALTON [address] [address] 11/06/2022 15:05:39 11/06/2022 16:07:11 Low back pain 865510331 M54.50 Lumbar radiculopathy 128 695826 M54.16 M51.37 M54.50 Degenerati on of lumbosacral intervertebral disc 84481344 M51.37 [id number] JEFF GRIGGS [facility] [address] [place] [address] 11/20/2022 08:34:26 11/20/2022 08:54:49 Pain of left knee joint 2559612187 54143 M25.562 [id number] JEFF DALTON [address] [address] 01/08/2023 15:39:26 01/08/2023 16:37:53 Neck pain 53680529 M54.2 Low back pain 835945789 M54.50 Lumbar radiculopathy 128 771121 M54.16 M51.37 M54.50 Degenerati on of lumbosacral intervertebral disc 45899663 M51.37 Cervical spondylosis 387 641608 M47.812 [id number] JEFF DALTON [address] [address] 02/05/2023 10:13:35 02/05/2023 11:31:12 Neck pain 46555091 M54.2 Low back pain 543828909 M54.50 Degenerati on of lumbosacral intervertebral disc 61265779 M51.37 Cervical spondylosis 387 681899 M47.812 [id number] MD WILMER Burgos [address] [address] 04/26/2023 13:10:25 04/26/2023 14:09:07 Pain of left shoulder joint 5631813149 5053733 M25.512 Calcific t endinitis of shoulder 98130977 M75.32 [id number] MD WILMER Bui [address] [facility] [place] [address] 05/02/2023 12:56:48 05/02/2023 13:50:37 History of total replacement of right hip joint 4544826850 51784 Z96.641 History of total replacement of left hip joint 1187781165 143917 Z96.642 Lumbar spondylosis 24101 0009 M47.896 [id number] MD WILMER Bui [address] [facility] [place] [address] 06/06/2023 13:02:48 06/06/2023 14:20:48 History of total replacement of left hip joint 6271091395 641910 Z96.642 [id number] ALISSA RUSH PA-C [address] [address] 06/11/2023 16:05:47 06/11/2023 16:42:13 Neck pain 02574090 M54.2 Low back pain 885300224 M54.50 Degenerati on of lumbosacral intervertebral disc 87987925 M51.37 Cervical spondylosis 387 511927 M47.812 Numbness of hand 0136448 04 R20.0 M54.2 M47.892 [id number] MD WILMER Bui 35 [facility] [place] [address] 07/11/2023 13:24:41 07/11/2023 15:26:42 History of total replacement of left hip joint 9095677336 055658 Z96.642 History of total replacement of right hip joint 3690152319 68584 Z96.641 [id number] Leonardo Khalil MD [address] [address] 05/30/2024 13:46:08 05/30/2024 14:08:34 Pain of left knee region 7590845949 39590 M25.562 88367945 Rupture of anterior cruciate ligament of left knee 0136248703 6369335 S83.512S 47407826 Injury of articular cartilage of left knee joint 7092143122 1729768 S83.8X2S 44419758 Health Concerns Section Related Observation LastModified by Organization Detai ls LastModified Time None Recorded Concern Status LastModified by Organization Details LastModified Time None Recorded Advance Directives Directive None Recorded Payers Insurance Date Sequence Insurance Name Policy Number Policy Wise Covered Member ID Wise Member ID Guarantor Name 11/17/2022 1 BERTA [id number] Cristal Junior [id number] Cristal Junior Notes Date Note Type Note Provider Name and Address Organization Details Recorded Time 06/11/2023 text/html ROS as noted in the HPI prior visit 02/05/23 62-year-old generally healthy female who returns for continued management of her lumbar and cervical spine. She had her lumbar MRI at [facility] on January 21, 2023. We a disc of images, however she logged into her [employer] accounts we may review the images together. This revealed multilevel lumbar spondylosis, left-sided disc protrusion at T11-T12, no high-grade central or foraminal stenosis. She continues to have thoracolumbar pain, lumbosacral pain. Her leg pain is not as bothersome. In regards her cervical spine, her symptoms are unchanged and she continues to have neck pain that radiates to her left shoulder with intermittent left arm discomfort. She is starting physical therapy on her cervical spine. PLAN: Cristal continues to have low back discomfort. Her leg pain has improved. Her MRI revealed a T11-12 disc protrusion. She has multilevel spondylosis. No high-grade central or foraminal stenosis. We discussed the treatment options at length including continued conservative care, injection therapy and surgical intervention. Currently, the patient is not a surgical candidate for her lumbar spine We discussed the importance of avoiding noxious spine activities, avoiding repetitive bending, lifting, twisting. The patient may use thermal modalities as needed. We discussed the comprehensive spine [place] for nonoperative care of her spinal symptoms. She would like to proceed with this. We will place referral for her. In addition, she continues to have neck pain and left arm discomfort. She is starting physical therapy for her cervical spine. She will complete 6 weeks of physical therapy and follow-up with us after completion of therapy. if her pain does not improve she would like to move forward with an MRI of her cervical spine. In addition, she reports that her job is requiring her her to return to work 3 days/week, the remainder of the week she works from home. She is requesting reasonable accommodation that she return to work 3 days/week as scheduled but on nonconsecutive days. We wrote a note stating the above accommodation. We handed this directly to her. In addition, she is not benefiting from meloxicam. She reports she has tried Celebrex in the past, she would like to use this sparingly. Responds were discussed she will avoid other anti-inflammatories. She understands we I do not manage chronic medications, we will supply her with a 1 month supply of Celebrex. ALISSA RUSH PA-C [address], [place], [address], [place] [facility] 06/11/2023 16:39:25 OBGyn Episode No OBEpisode recorded.
--- OUTSIDE RECORDS SUMMARY | 2025-06-10 16:38 | XMS_ITS | Clinical Summary ---
Author Organization [facility] Address [address] [place] [address] Care Team Providers Care Scientific Artist Name Role Phone Canelo Suazo MD Primary Care Provider + Allergies No known active allergies Medications olmesartan (BENICAR) 20 MG tablet Take 40 mg by mouth daily. Active hydrochlorothia zide (HYDRODIURIL) 25 MG tablet Take 25 mg by mouth daily. Active Multiple Vitamin tablet Take 1 tablet by mouth daily. Active cholecalciferol (CHOLECALCIFERO L) 25 MCG (1000 UT) tablet Take 1,000 Units by mouth daily. Active Green Tea, Jacque sinensis, (GREEN TEA EXTRACT PO) Take by mouth daily. Active sodium-potassiu m-magnesium sulfates (Suprep Bowel Prep Kit) 17.5-3.13-1.6 GM/177ML Solution solutionIndicat ions:Hx of colonic polyps Follow directions provided by physician's office. 177 mL 5 Active Family History Medical History Relation Name Comments Heart attack Father Israel from heart attack Stroke Mother Tamika Relation Name Status Comments Father Israel Lundberg Social History Tobacco Use Types Packs/Day Years Used Date Smoking Tobacco: Former Cigarettes 10 0 08/09/1991 - 08/09/2001 Smokeless Tobacco: Never Alcohol Use Standard Drinks/Week Comments Not Currently 0 (1 standard drink = 0.6 oz pur e alcohol) Comments No Sex and Gender Information Value Date Recorded Sex Assigned at Not on file Legal Sex Female 10:51 AM EDT Gender Identity Not on file Sexual Orientation Not on file Last Filed Vital Signs Vital Sign Reading Time Taken Comments Blood Pressure 128/74 03/31/2022 10:44 AM EDT Pulse 65 03/31/2022 10:44 AM EDT Temperature 36.7 C (98.1 F) 03/31/2022 10:05 AM EDT Respiratory Rate 18 03/31/2022 10:44 AM EDT Oxygen Saturation 96% 03/31/2022 10:44 AM EDT Inhaled Oxygen Concentration - - Weight 95.3 kg (210 lb) 04/21/2025 2:55 PM EDT Height 165.1 cm (5' 5 ) 04/21/2025 2:55 PM EDT Body Mass Index 34.95 04/21/2025 2:55 PM EDT Plan of Treatment Health Maintenance Due Date Last Done Comments Hepatitis C Virus Screening 1960 HIV Screening 1973 DTaP/Tdap/Td Vaccines (1 - Tdap) 1979 Pap Smear (Ages 21-65) 1981 Mammogram 2000 Pneumococcal Vaccines 50+ (1 of 1 - PCV) 2010 RSV Vaccine 50 years and older and Patients (1 - Risk 50-74 years 1-dose series) 2010 Zoster (Shingles) Vaccine (1 of 2) 2010 Influenza Vaccine 02/06/2025 COVID-19 Vaccine (3 - 2024-2 6 season) 2025 10/23/2020, 10/01/2020 Colonoscopy 03/31/2032 03/31/2022 Hepatitis B Vaccines Aged Out No long er eligible based on patient's age to complete this topic Insurance [facility] [place] [id number] [place] [id number] Care Teams Scientific Artist Relationship Specialty Start Date End Date Canelo Suazo MD [address] [place] [address] [address] [place] [address] PCP - General 02/21/22
--- OUTSIDE RECORDS SUMMARY | 2025-06-10 16:38 | XMS_ITS | Encounter Summary ---
Author Organization [facility] Address [address] [place] [address] Care Team Providers Care Emergency Response Technician Name Role Phone Canelo Suazo MD Primary Care Provider + Encounter Details Date Type Department Care Team (Late st Contact Info) Description 03/31/[address] [facility] [address] [place] [phone] Diego Thibodeaux MD [address] [place] [address] Social History Tobacco Use Types Packs/Day Years [...] on file Sexual Orientation Not on file COVID-19 Exposure Response Date Recorded In the last 10 days, have yo u been in contact with someone who was confirmed or suspected to have Coronavirus/COVID-19? No / Unsure 03/31/2022 8:56 AM EDT documented as of this encounter Plan of Treatment Not on file documented as of this encounter Procedures Procedure Name Priority Date/Time Associated Diagnosis Comments PATHOLOGY REPORT 03/31/2022 12:0 0 AM EDT documented in this encounter Results * PATHOLOGY REPORT (03/31/2022 12:00 AM EDT) us Diego Thibodeaux MD PATHOLOGY[facility] Final Result documented in this encounter Visit Diagnoses Not on filedocumented in this encounter Care Teams Emergency Response Technician Relationship Specialty Start Date End Date Canelo Suazo MD [address] [place] [address] [address] [place] [address] PCP - General 02/21/22 documented as of this encounter
--- OUTSIDE RECORDS SUMMARY | 2025-06-10 16:39 | XMS_ITS | Patient Health Record ---
Author Organization [facility] Address [address] [facility] [place] [address] Care Team Providers Care Senior Treasury Consultant Name Role Phone Canelo Suazo MD Primary Care Provider Unavail able Jarocho An Unavailable [phone] Reason For Referral No Information Medications Medication SIG (Take, Route, Frequency, Duration) Notes Start Date End Date Status Diclofenac Sodium 75 MG (Prior Auth: Rx Ref#:[id number]) Oral; Duration: 30 Not-Taking dexAMETHasone Sodium Phosphate 4 MG/ML (Prior Auth: Rx Ref#:[id number]) Injection; Duration: 30 Not-Taking HYDROcodone-Acetaminophen 5-325 MG (Schedule II Drug) (Prior Auth: Rx Ref#:[id number]) Oral; Duration: 3 Not-Taking ProAir RespiClick 108 (90 Base) MCG/ACT (Prior Auth: Rx Ref#:[id number]) Inhalation; Duration: 30 Not-Taking Advil Multi-Symptom Cold PRN Active Multi Vitamin Daily Active Feldene 10 MG 1 capsule with food Orally Once a day; Duration: 30 day(s) 06/27/2016 Active ProAir HFA 108 (90 Base) MCG/ACT (Prior Auth: Rx Ref#:[id number]) Inhalation; Duration: 17 PRN Active levoFLOXacin 500 MG (Prior Auth: Rx Ref#:[id number]) Oral; Duration: 7 Not-Taking Social History Tobacco Use: Social History Observation Description Date Details (start date - stop date) Former Smoker NA - NA Tobacco Use/Smoking Question Answer Notes Are you a: former smoker Additional Findings: Tobacco Non-User Current no n-smoker Alcohol Screen Question Answer Notes Did you have a drink containing alcohol in the p ast year? No Points 0 Interpretation Negative Problems Problem Type SNOMED Code ICD Code Onset Dates Problem Status W/U Status Risk Notes Problem Plantar fascial fibromatosis (48443429) Plantar fascial fibromatosis (M72.2) Active confirmed Plan Of Treatment No Information Insurance Providers Payer Name Payer Address Payer Phone Subscriber Number Group Number Insured Name Patient Relationship to Insured Coverage Start Date Coverage End Date [address] [place] [phone] [id number] Cristal Junior Self - patient is the insured Medical (General) History Medical History History ICD Code asthma Surgical History Surgery Date(Month/Year) cholecystectomy 210
== END 2025-06-10 14:47 | disposition home or self-care (01) ==
LOC: HO.HNS 13:53
PROVIDERS: PCP Internal Medicine; Visit Provider Neurological Surgery
DX: M46.1 Sacroiliitis, not elsewhere classified (principal)
CPT/HCPCS: 99204